=== PATIENT | female | born 2005 ===

== ENCOUNTER 2024-08-28 15:23 | Outpatient (CLI) | payer OTHER | END 2024-08-28 15:24 | disposition home or self-care (01) | LOC: PRENATAL 15:23 | PROVIDERS: ATTEND Obstetrics & Gynecology Maternal & Fetal Medicine | DX: O44.00 Complete placenta previa NOS or without hemorrhage, unspecified trimester (principal); O28.3 Abnormal ultrasonic finding on antenatal screening of mother; Z3A.20 20 weeks gestation of pregnancy ==